=== PATIENT | male | born 1980 | race Caucasian/White ===

== ENCOUNTER 2019-05-23 00:03 | Emergency (ER) | payer MEDICARE, MEDICAID ==
[~2019-05-23] VITALS: Ht 167.6 cm; Wt 86.4 kg
[~2019-05-23 00:03] MED LIST: ERYT1OIN6 OP; HYDR-4383 PO
[2019-05-23 00:06] VITALS: BP 137/74
[2019-05-23] MEDS ORDERED: LIDOcaine 1% W/epiNEPHrine 1:200,000 10ml vial IJ STA (00:17)
[2019-05-23] MEDS ORDERED: clindamycin 150mg capsule PO STA (00:27)
[2019-05-23] MEDS ORDERED: ibuprofen tablet 400 MG TABLET PO STA (00:29)
[2019-05-23] MEDS ORDERED: CLIN-97 PO (00:30)
--- NOTE | 2019-05-23 00:42 | NUR ---
4X4S TO WOUND SITE AND COBAN OVER THAT. INSTRUCTED TO PULL WICK IN 2 DAYS.
== END 2019-05-23 00:42 | disposition home or self-care (01) ==
LOC: ER 00:04
DX: L02.414 Cutaneous abscess of left upper limb (principal); F12.90 Cannabis use, unspecified, uncomplicated; F17.200 Nicotine dependence, unspecified, uncomplicated; Z90.49 Acquired absence of other specified parts of digestive tract; Z98.890 Other specified postprocedural states; Z59.0 Homelessness; Z56.0 Unemployment, unspecified; Z79.2 Long term (current) use of antibiotics; Z79.899 Other long term (current) drug therapy
CPT/HCPCS: 10060; 99283

== ENCOUNTER 2024-11-18 21:06 | Emergency (ER) | payer MEDICAID, MEDICARE, OTHER ==
[~2024-11-18] VITALS: Ht 185.4 cm; Wt 90.9 kg
[~2024-11-18 21:06] MED LIST changes: +CLIN-224 PO
--- NOTE | 2024-11-18 21:22 | Physician Documentation ---
History of Present Illness ~ Chief Complaint: See Chief Complaint Stated Complaint: FISH HOOK IN HIP Time Seen by MD: 21:18 Primary Medical Doctor: none HPI 44-year-old male presents to the ED with a complaint of a fishhook that was embedded in his left hip. Unsure of his tetanus vaccination Medication Reconciliation Allergies: Coded Allergies: No Known Allergies (Unverified , 08/30/12) Scheduled Clindamycin HCL* (Clindamycin HCL*), 1 CAP PO Q8H Erythromycin Base Opth. Ointment* (Erythromycin Opth. Ointment*), 1 APPLIC OP Q4HWA Scheduled PRN Hydrocodone/Acetaminophen ([place] 5-325 Tablet), 1 TABLET PO Q4H PRN for pain Past Medical History Past Medical History: No Pertinent History, MRSA Abscess Past Surgical History: appendectomy, orthopedic surgeries Alcohol Use: None Drug Use: marijuana Lives with: Family Lives In: Homeless Occupation: unemployed Physical Exam Vital Signs: Temperature: 97.6, Heart Rate: 62, Respiratory Rate: 16, BP: 112/76, Pulse Oximetry: 98, Weight: 90.910 Oxygen Flow Rate: 0 Physical Exam General: Alert, no apparent distress. Skin: Normal color, warm and dry. No edema, no ecchymosis. Single fish hook monique imbedded into the left hip Procedures Procedures Polk removed with needle nose pliers without incident , no bleeding was evident the complete monique was removed Progress Results/Orders Results/Orders Completed Orders - [facility] [employer] [employer] Lidocaine 1% W/Epi 1:100,000 (Xylocaine (11/18/24 21:20) Tetanus/Pertuss/Diph Acell/Pf (Boostrix (11/18/24 21:35) Vital Signs 11/18/24 11/18/24 21:08 21:53 Temp 97.6 98.6 Pulse 62 60 Resp 16 16 B/P (MAP) 112/76 113/72 Pulse Ox 98 99 O2 Flow Rate 0 Medical Decision Making Findings Patient stated that he was afraid of needles and opted not to take the Lidoderm with epi to numb the region before removal. However the fishhook was removed without incident and patient reported no pain. Offered tetanus Boostrix Differential Dx:Considerations: Include: Abscess, AIDS/HIV, Anthrax (cutaneous ), Atopic dermatitis, Candidiasis, Contact dermatitis, Drug reaction, Erythema multiforme, Erysipelas, Gangrene, Herpes zoster, Herpes simplex, Hidradenitis suppurativa, Impetigo, Intertrigo, Lymes disease, Molluscum contagiosum, Osteomyelitis, Pediculosis, Pityriasis rosea, Psoriaisis, RMSF, Rosacea, Scabies, Scarlet fever, Tinea, Urticaria, Varicella, Viral exanthema, Other Departure Disposition: 01 HOME / SELF CARE / HOMELESS Impression: Primary Impression: Fish hook in buttock Condition: Improved Discharge Instructions: Polk Removal Referrals: NO PRIMARY CARE PROVIDER (PCP) Signature Scribe Signature: h Attestation: Scribed for Gav[facility] [employer]ter[employer] Tailor by Gavino Limon NP . 11/18/24 22:51 [facility] [employer] [employer] Nov 18, 2024 21:22
[2024-11-18] MEDS: TETanus/Pertussis (Acell)/Diphther VAC/PF (Tdap-Adult) 0.5ml syringe IMVAC ONE (21:41)
[2024-11-18] MEDS: LIDOcaine 1% W/epiNEPHrine 1:100,000 20ml vial SQ ONE (21:42)
[2024-11-18 21:53] VITALS: BP 113/72; PULSE 60; RESP 16; TEMP 98.6; O2SAT 99
== END 2024-11-18 21:54 | disposition home or self-care (01) ==
LOC: ER 21:07
DX: S70.252A Superficial foreign body, left hip, initial encounter (principal); F12.90 Cannabis use, unspecified, uncomplicated; Z90.49 Acquired absence of other specified parts of digestive tract; Z56.0 Unemployment, unspecified; Z59.00 Homelessness unspecified; Z98.890 Other specified postprocedural states; X58.XXXA Exposure to other specified factors, initial encounter; Y93.89 Activity, other specified; Y92.89 Other specified places as the place of occurrence of the external cause; Y99.8 Other external cause status
CPT/HCPCS: 99284